=== PATIENT | female | born 1990 | race Caucasian/White ===

== ENCOUNTER 2018-07-03 10:12 | Outpatient (RCR) | payer OTHER | END 2018-10-01 | disposition home or self-care (01) | LOC: WSOH | DX: S61.211A Laceration without foreign body of left index finger without damage to nail, initial encounter (principal); S61.213A Laceration without foreign body of left middle finger without damage to nail, initial encounter; W54.0XXA Bitten by dog, initial encounter; Y93.F9 Activity, other caregiving; Y92.214 College as the place of occurrence of the external cause; Y99.0 Civilian activity done for income or pay ==